=== PATIENT | female | born 1940 | race Asian ===

== ENCOUNTER 2016-08-30 12:06 | Emergency (ER) | payer OTHER, MEDICAID ==
[~2016-08-30] VITALS: Ht 147.3 cm; Wt 40.8 kg
[~2016-08-30 12:06] MED LIST: AMLODIPINE/BENA1 CAP PO; ASPIRIN81 M1 PO; ATROVENT 00.5 MG/3 M INH; AUGMENTIN 500 M1 TAB PO; CIPRO500 M1 PO; DEPAKOTE SPRIN125 MG PO; ENSURE PO; FER-IN-SOL75 MG/0.6 PO; LIPITOR20 MG PO; NAMENDA XR28 MG PO; NORVASC5 MG PO; OMEGA-3 FISH1200 MG PO; ORETIC25 MG PO; PROVENTIL2.5 MG/3 M INH; SYNTHROID0.025 MG PO; ZOCOR40 MG PO
[2016-08-30 12:17] VITALS: BP 132/88
--- NOTE | 2016-08-30 12:22 | NUR ---
PT BIB W/C TO BED 3 AT THIS TIME.
--- NOTE | 2016-08-30 12:24 | NUR ---
76F BIB SON FROM [facility] C/O NAUSEA/VOMITING/ DIARRHEA X LAST NIGHT; SON STATES UNKNOWN AMOUNT OF VOMITING/DIARRHEA; ABDOMEN SOFT, FLAT, NON-TENDER, ACTIVE BOWEL SOUNDS X 4 QUADRANTS; PT AWAKE, ALERT, BUT APHASIC; NO CRYING OR FACIAL GRIMMACE NOTED AT THIS TIME; HX: DEMENTIA/ALZHEIMERS; BL LUNG SOUNDS CLEAR, RR EVEN/UNLABORED AT THIS TIME; SKIN IS WARM/DRY; PT NOTED W/ BIRTHMARK TO LEFT EYE; SON STATES PT W/C BOUND AT FACILITY; PT PLACED ON MONITOR, RESTING IN BED W/ HOB ELEVATED AND IN LOWEST POSITION; POSITIONED FOR COMFORT; ER MD MADE AWARE OF STATUS. WILL CONTINUE TO MONITOR.
--- NOTE | 2016-08-30 12:38 | NUR ---
XRAY AT BEDSIDE.
--- NOTE | 2016-08-30 13:38 | NUR ---
PT APPEARS TO BE RESTING COMFORTABLY IN BED; VSS; WILL CONTINUE TO MONITOR.
--- NOTE | 2016-08-30 14:38 | NUR ---
PT READY FOR D/C PER ER MD WEINER ORDER; SON CALLED; STATED WILL COME PICK PT UP LATER HE IS BUSY AT THE MOMENT; WILL CONTINUE TO MONITOR; PT APPEARS TO BE SLEEPING COMFORTABLY IN BED; VSS; RR EVEN/UNLABORED.
[2016-08-30 15:37] VITALS: BP 113/77
--- NOTE | 2016-08-30 15:37 | NUR ---
Patient discharged with v/s stable. Written and verbal after care instructions given and explained. Patient alert, oriented and verbalized understanding of instructions. Ambulatory with steady gait. All questions addressed prior to discharge. ID band removed. Patient advised to follow up with PMD. Rx of IMODIUM A-D2 MG & ZOFRAN given. Patient educated on indication of medication including possible reaction and side effects. Opportunity to ask questions provided and answered.
== END 2016-08-30 15:37 | disposition home or self-care (01) ==
LOC: MED 12:06
DX: R19.7 Diarrhea, unspecified (principal); R11.2 Nausea with vomiting, unspecified; I10 Essential (primary) hypertension; Z79.82 Long term (current) use of aspirin
CPT/HCPCS: 36415; 71010; 80053; 81002; 85025; 85610; 85730; 87804; 99285; C1758

== ENCOUNTER 2016-09-12 14:46 | Inpatient (IN) | payer OTHER, MEDICAID ==
[~2016-09-12] VITALS: Ht 149.9 cm; Wt 40.4 kg
--- NOTE | 2016-09-12 14:46 | NUR ---
Patient was BIBA at this time.
--- NOTE | 2016-09-12 15:00 | NUR ---
Patient being taken to bed 07 via gurney per EMS.
[2016-09-12 15:10] VITALS: BP 148/85
--- NOTE | 2016-09-12 15:13 | NUR ---
76/F biba from [facility] for evaluation of diarrhea x4 in the past hour according to EMS. Patient has hx of Dementia and Alzhemier's. Pt is noted with imcomprehensible speech, garbled speech. Patient unable to make needs known but will sometimes follow commands. Patient is awake and alert. Pt also noted with a purple discoloration to left eye which is a valencia. Abdomen is soft, non tender. Patient noted with x1 episode of diarrhea, loose, brown stool. Pt incontinent, noted with a brief. No edema noted. Pt in a gown, all belongings placed in a bag and set on the back of the gurney. VSS.
--- NOTE | 2016-09-12 15:14 | NUR ---
Erica cintron in [facility] - 09/12/16 at [address] Feng evaluating patient at bedside.
[2016-09-12] MEDS ORDERED: NACL 0.9% 1,000 ML IV ONE (15:20)
[2016-09-12] MEDS ORDERED: SYNTHROID0.05 MG PO (15:24)
[2016-09-12] MEDS ORDERED: DEPAKOTE SPRIN125 MG PO (15:24)
[2016-09-12] MEDS ORDERED: NAMENDA10 MG PO (15:24)
[2016-09-12] MEDS ORDERED: ORETIC25 MG PO (15:24)
[2016-09-12] MEDS ORDERED: IMODIUM2 MG PO (15:24)
[2016-09-12] MEDS ORDERED: ZOFRAN8 MG PO (15:24)
[2016-09-12] MEDS ORDERED: VITAMIN D5000 I2 PO (15:24)
[2016-09-12] MEDS ORDERED: FISH OIL 1,2001 EAC2 PO (15:24)
[2016-09-12] MEDS ORDERED: ASPIR-LOW81 MG PO (15:24)
[2016-09-12] MEDS ORDERED: LIPITOR20 MG PO (15:24)
--- NOTE | 2016-09-12 15:39 | NUR ---
Dr. Feng evaluating pateint at bedside.
--- NOTE | 2016-09-12 15:50 | NUR ---
Patient taken to x-ray via gurney.
--- NOTE | 2016-09-12 15:59 | NUR ---
Patient back from XRAY via [facility].
--- NOTE | 2016-09-12 16:33 | NUR ---
Pt taken to CT via [facility].
--- NOTE | 2016-09-12 16:41 | NUR ---
Patient back from CT via [facility].
--- NOTE | 2016-09-12 16:47 | NUR ---
Pt placed onto right side lateral supported with pillows.
[2016-09-12] MEDS ORDERED: LEVOFLOXACIN 500 MG/D5W PREMIX 100 ML IV ONE (18:20)
[2016-09-12] MEDS: NACL 0.9% 1,000 ML IV SCH (18:27)
[2016-09-12] MEDS ORDERED: ONDANSETRON 4 MG/2 ML VIAL IVP PRN (18:30)
[2016-09-12] MEDS ORDERED: ENOXAPARIN 40 MG/0.4 ML SYR SUBQ ONE (18:30)
[2016-09-12] MEDS ORDERED: ACETAMINOPHEN 325 MG TAB PO PRN (18:30)
[2016-09-12] MEDS ORDERED: LORazepam 2 MG/ML VIAL IVP PRN (18:30)
--- NOTE | 2016-09-12 18:51 | NUR ---
Erica cintron in [facility] - 09/12/16 at 1851 by [facility] Patient being evaluated by physician at bedside.
--- NOTE | 2016-09-12 18:51 | NUR ---
Patient appears to be resting comfortably in bed. Vital Signs within normal limits. Respirations even and unlabored.
--- NOTE | 2016-09-12 19:24 | NUR ---
Pt report given to Landy VILLANUEVA. Transfer of care at this time.
--- NOTE | 2016-09-12 19:25 | NUR ---
RECEIVED REPORT FROM ROSA SANCHEZ FOR TRANSFER OF CARE.
--- NOTE | 2016-09-12 19:29 | NUR ---
PT TAKEN OFF THE UNIT VIA GURNEY TO HAVE X-RAY DONE.
--- NOTE | 2016-09-12 19:48 | NUR ---
PT BACK ON UNIT FROM HAVING X-RAY DONE.
--- NOTE | 2016-09-12 21:15 | NUR ---
Pt report given to RICH HANSEN. Transfer of care at this time.
--- NOTE | 2016-09-12 22:26 | NUR ---
Pt report given to MILAN VILLANUEVA. Transfer of care at this time.
[2016-09-12 22:30] VITALS: BP 116/74
--- NOTE | 2016-09-12 22:30 | NUR ---
ADMITTED A PT FROM ER, TRANSPORTED VIA GURNEY ACCOMPANIED BY ER NURSE. PT IS AAOX1, CONFUSED, ON ROOM AIR, HAS NO S/S OF RESPIRATORY DISTRESS/DISCOMFORT NOTED. LEFT EYE HEMATOMA NOTED, RIGHT KNEE ABRASION NOTED AND SACRAL WOUND. IV SITE IS PATENT AND INFUSING WELL. ID BAND UPDATED. MRSA SWABBING DONE. PLAN OF CARE DISCUSSED. ROOM ORIENTATION DONE, UNABLE TO COMPREHEND. SAFETY MEASURES INITIATED. WILL CONTINUE TO MONITOR.
[2016-09-13] VITALS: BP 116/78
--- NOTE | 2016-09-13 00:23 | NUR ---
RECEIVED A CALL FROM SABINO CHAVEZ. REPORTED A CRITICAL VALUE TROPONIN= 0.085, WILL CALL DR JASSO.
--- NOTE | 2016-09-13 00:24 | NUR ---
PAGED DR JASSO WAITING FOR CALL BACK.
--- NOTE | 2016-09-13 00:26 | NUR ---
CALLBACK RECEIVED FROM DR. JASSO. I REPORTED A CRITICAL VALUE AND NO NEW ORDERS MADE.
[2016-09-13] MEDS ORDERED: cefTRIAXone 1,000 MG VIAL ONE (01:33)
--- NOTE | 2016-09-13 02:00 | NUR ---
PT SLEEPING. NO SIGNS OF DISTRESS. CALL LIGHT WITHIN REACH.
[2016-09-13] MEDS ORDERED: COMPOSITE DRESSING TP PRN ×2 (03:00→15:00)
[2016-09-13 04:00] VITALS: BP 135/85
--- NOTE | 2016-09-13 04:00 | NUR ---
V/S CHECKED AND STABLE. HAS NO PAIN AND NOT IN DISTRESS. CALL LIGHT WITHIN REACH.
[2016-09-13] MEDS: NACL 0.9% 1,000 ML IV SCH ×3 (04:08→22:54)
--- NOTE | 2016-09-13 05:00 | NUR ---
AM CARE DONE TO THE PT. SPONGE BATH GIVEN. LINEN CHANGED. CALL LIGHT WITHIN REACH.
--- NOTE | 2016-09-13 05:35 | NUR ---
SPOKE WITH DR JASSO VIA PHONE. REPORTED THAT THE PT CAN'T TOLERATE PO PILL FOR XR SMALL BOWEL FOLLOW THROUGH PER INTERSTATE PLANNER DEX. MADE AN ORDER FOR NGT INSERTION.
--- NOTE | 2016-09-13 05:59 | NUR ---
INSERTED A NGT #[id number]. PLACEMENT WAS CHECKED BY 2 RN, DESI
[2016-09-13 08:00] VITALS: BP 150/109
[2016-09-13] MEDS: ENOXAPARIN 30 MG/0.3 ML SYR SUBQ SCH (08:19)
--- NOTE | 2016-09-13 08:41 | NUR ---
PATIENT HAS BEEN SCREENED AND CATEGORIZED HIGH NUTRITION RISK. PATIENT WILL BE SEEN WITHIN 1-2 DAYS OF ADMISSION. 09/13/16-09/14/[address]
--- NOTE | 2016-09-13 08:54 | NUR ---
RECEIVED A CRITICAL LAB VALUE FROM STEFAN, LAB TROPONIN= 0.083. WILL PAGED ATTENDING
--- NOTE | 2016-09-13 09:00 | NUR ---
PAGED ATTENDING WAITING FOR CALL BACK.
--- NOTE | 2016-09-13 10:13 | NUR ---
[place] [facility] [phone] PHONE THOMAS [phone]
--- NOTE | 2016-09-13 11:00 | NUR ---
ENDORSED REPORT TO DAY SHIFT NURSE. PT IN STABLE CONDITION.
--- NOTE | 2016-09-13 11:01 | NUR ---
ASSUMED CARE FROM MEENAKSHI ARIAS. PT AWAKE, ALERT. NON VERBAL. NG TUBE IN PLACE, CLAMPED. NPO FOR PROCEDURE. SMALL BOWEL FOLLOW THROUGH ON GOING AT THE BEDSIDE. WILL CONTINUE TO MONITOR PT.
[2016-09-13] MEDS ORDERED: LABETALOL 100 MG/20 ML VIAL IVP PRN (11:40)
[2016-09-13 12:00] VITALS: BP 146/88
[2016-09-13] MEDS ORDERED: POTASSIUM CHLORIDE 40 MEQ, LIDOCAINE 1% 25 MG in NACL 0.9% 250 ML IV SCH (13:00)
--- NOTE | 2016-09-13 13:00 | NUR ---
PT HAD LARGE BMX1, SOFT TO LIQUID BROWN STOOL NOTED. CLEANED PT. REPOSITIONED EVERY 2 HRS.
[2016-09-13] MEDS ORDERED: Z-GUARD PASTE TP PRN (15:00)
--- NOTE | 2016-09-13 15:03 | NUR ---
09/28/15 RD INITIAL ASSESSMENT COMPLETED PLEASE REFER TO NUTRITION ASSESSMENT UNDER CARE ACTIVITY FOR ESTIMATED NUTRITIONAL NEEDS. RD RECOMMENDATIONS: 1. CONSIDER SWALLOW EVALUATION 2. IF PT ABLE TO BEGIN PO DIET CONSIDER ADVANCE DIET TOLERATED TO 2GM NA WITH TEXTURE RECOMMENDATIONS PER SPEECH THERAPIST SWALLOW EVALUATION. 3. RD WILL F/U 2-3 DAYS; HIGH RISK. IZZY SOTO RD
[2016-09-13 17:00] VITALS: BP 148/67
--- NOTE | 2016-09-13 17:39 | NUR ---
PT HAD ANOTHER LARGE BMX1, LIQUID BROWN STOOLS NOTED.
--- NOTE | 2016-09-13 18:48 | NUR ---
PT RESTING. NO SOB NOTED. NO SIGNS OF PAIN. CLEAR LIQUIDS NOT GIVEN PENDING SWALLOW EVALUATION BY SPEECH THERAPIST. WILL ENDORSE TO NEXT SHIFT NURSE FOR CONTINUITY OF CARE.
[2016-09-13 20:00] VITALS: BP 139/73
--- NOTE | 2016-09-13 20:00 | NUR ---
SEEN PT AWAKE MOVING A LOT. PT MUMBLES ONLY. INITIAL ASSESSMENT DONE. VITAL SIGNS CHECKED. PT REPOSITIONED FOR COMFORT. SAFETY REINFORCED.
[2016-09-13] MEDS ORDERED: SODIUM PHOSPHATE 118 ML ENEM RC SCH (21:00)
[2016-09-13] MEDS: DIVALPROEX SPRINKLES 125 MG CAPDR PO SCH (22:36)
[2016-09-13] MEDS: ATORVASTATIN 20 MG TAB PO SCH (22:37)
[2016-09-13] MEDS: MEMANTINE 10 MG TAB PO SCH (22:37)
--- NOTE | 2016-09-13 23:20 | NUR ---
SEEN PT AWAKE BUT MOVES A LOT. VITAL SIGNS CHECKED. NO DISCOMFORT NOTED. PT REPOSITIONED FOR COMFORT.
[2016-09-14] VITALS: BP 158/77
[2016-09-14] MEDS: Z-GUARD PASTE TP SCH ×2 (01:00→13:00)
[2016-09-14] MEDS: NACL 0.9% IRR 250 ML BOTTLE IR SCH ×2 (01:00→13:00)
--- NOTE | 2016-09-14 01:30 | NUR ---
PT HAD LARGE AMOUNT OF BROWN ,THICK LIQUID TO PASTY STOOL. PERICARE RENDERED. WOUND DRESSING CHANGED. Z-GUARD APPLIED. PT KEPT COMFORTABLE.
[2016-09-14 04:00] VITALS: BP 152/69
--- NOTE | 2016-09-14 04:20 | NUR ---
SEEN PT ASLEEP. VITAL SIGNS CHECKED. ENGINEER BYPRODUCT HERE TO DO AM CARE.
[2016-09-14] MEDS: LEVOTHYROXINE 0.05 MG TAB PO SCH (06:45)
--- NOTE | 2016-09-14 07:15 | NUR ---
RECEIVED REPORT FROM NIGHT NURSE. PT IS AOX1. PT IS ON ROOM AIR. PT'S IV IS ON THE RIGHT FORE ARM PATENT AND INTACT. PT HAS NGT IN PLACE. PT IS NONVERBAL AND SHOWS NO S/S OF DISTRESS. PT HAS CALL LIGHT WITHIN REACH, BED IS LOWERED, AND FLAT. WILL CONTINUE TO MONITOR.
[2016-09-14 08:13] VITALS: BP 133/68
[2016-09-14] MEDS: ECOTRIN 81 MG TABEC PO SCH (09:00)
[2016-09-14] MEDS: POTASSIUM CHLORIDE 10 MEQ TABER PO SCH ×2 (09:15→12:00)
[2016-09-14] MEDS: MEMANTINE 10 MG TAB PO SCH ×2 (09:48→20:09)
[2016-09-14] MEDS: HYDROCHLOROTHIAZIDE 25 MG TAB PO SCH (09:49)
[2016-09-14] MEDS: DIVALPROEX SPRINKLES 125 MG CAPDR PO SCH ×2 (09:50→20:09)
--- NOTE | 2016-09-14 09:50 | NUR ---
ADMINISTERED DUE MEDICATIONS THROUGH NGT. NGT PLACEMENT VERIFIED BY AUSCULTATION. NO RESIDUAL NOTED. PT TOLERATED WELL. WAITING FOR SWALLOW EVALUATION TO BE DONE. WILL CONTINUE TO MONITOR.
[2016-09-14] MEDS: ENOXAPARIN 30 MG/0.3 ML SYR SUBQ SCH (09:51)
[2016-09-14] MEDS: NACL 0.9% 1,000 ML IV SCH ×2 (10:41→20:10)
--- NOTE | 2016-09-14 10:43 | NUR ---
FNS CONSULT RECEIVED ON 09/13/16. NOTE RD ALREADY FOLLOWING PATIENT HIGH NUTRITION RISK. PLEASE REFER TO NUTRITIONAL INITIAL ASSESSMENT DATED 09/13/16 FOR RECOMMENDATIONS AND ESTIMATED NUTRITIONAL NEEDS. RD TO REASSESS PATIENT IN 2-3 DAYS FROM INITIAL ASSESSMENT DATE: 09/13/16-09/16/[address]
--- NOTE | 2016-09-14 11:55 | NUR ---
CM NOTE CONCURRENT REVIEW FAXED TO [facility] / FAX #[phone], ATTN: THOMAS #[phone]
[2016-09-14 12:00] VITALS: BP 152/69
[2016-09-14] MEDS: COMPOSITE DRESSING TP SCH (13:00)
[2016-09-14] MEDS: POTASSIUM CHLORIDE 20% 40 MEQ/15 ML UDC GT SCH ×2 (15:54→20:09)
[2016-09-14 16:00] VITALS: BP 125/72
--- NOTE | 2016-09-14 16:10 | NUR ---
PT SEEN BY DR BOOGIE, DRESSING ON THE SACRAL WOUND CHANGED PER ORDERS. PT HAD A MODERATE DARK BROWN AND LOOSE BM. PT GIVEN PERINEAL CARE. PT REPOSITIONED AND TURNED. PT TOLERATED WELL.
--- NOTE | 2016-09-14 16:30 | NUR ---
PT SEEN BY SPEECH THERAPIST. PER DR BOOGIE PT CAN RESUME ORDERED DIET WITH NGT INSERTED.
--- NOTE | 2016-09-14 16:55 | NUR ---
* ST NOTE * Pt seen at bedside. Bedside Dysphagia and Oral Mechanism exams completed. See evaluation report for further details. Pt tolerating 3/3 alternating PO trials of regular solid saltine crackers w/out s/s of aspiration. Pt exhibiting residue on lingua after PO intake of regular solids. Pt however exhibiting finger sweep of oral cavity independently at baseline throughout session. Pt also tolerating 4/4 alternating PO trials of thin liquid apple juice via a cup w/out s/s of aspiration. After evaluation, pt and caregivers/nursing education completed regarding safe swallow compensatory strategies pt and caregivers/nursing may utilize to aid pt with swallow function as well as to clear oral cavity of residue/pocketed food during and after PO intake, with pt and caregivers/Nursing agreeable with and verbalizing understanding of clinician's recommendations. Thus it is recommended pt's PO diet consistency be modified to Mechanical soft-ground textures with thin liquids for all meals, requiring close supervision by caregivers during PO intake to assure aspiration precautions are in place, as well as to aid pt with feeding. No further ST follow up recommended at this time. Pt, caregivers/Nursing and physician education completed regarding results of evaluation; benefits of abiding by aspiration precautions and recommended PO diet consistency; and prognosis for improvement; with pt, caregivers/Nursing and physician agreeable with and verbalizing understanding of clinician's recommendations. Recommend: - PO diet consistency of Mechanical soft-ground textures with thin liquids for all meals - Continue enteral feeding/alternative means of nutrition until pt maintains adequate nutrition & hydration via PO intake - CLOSE supervision by caregivers/family/staff during PO intake to assure aspiration precautions are in place - Pt requires total assistance with feeding No further ST follow up recommended at this time. G8996 G8997 CI G8998 CI NOMS Level 2 Time In/Out 16:15 - 17:00
--- NOTE | 2016-09-14 19:15 | NUR ---
GAVE REPORT TO NIGHT NURSE. PT ENDORSED IN STABLE CONDITION.
--- NOTE | 2016-09-14 19:30 | NUR ---
RECEIVED REPORT FROM DAY RN AT BEDSIDE, PATIENT IS AWAKE IN BED, NON VERBAL, ON ROOM AIR, NO SOB OR SIGN OF DISTRESS AT THIS TIME, NOTED NG TUBE TO RIGHT NARE, POSITIVE PLACEMENT WITH AUSCULTATION. NOTED BRUISE TO LEFT EYE. SACRAL WOUND PRESENT. IV TO RIGHT FA PATENT AND INTACT WITH IVF INFUSING WELL. SAFETY MEASURES CHECKED, BED ALARM ON, DISCUSSED PLAN OF CARE WITH PATIENT, PATIENT UNABLE TO COMPREHEND, CALL LIGHT WITHIN REACH. WILL CONTINUE TO MONITOR.
[2016-09-14 20:00] VITALS: BP 140/86
[2016-09-14] MEDS: ATORVASTATIN 20 MG TAB PO SCH (20:09)
--- NOTE | 2016-09-14 20:21 | NUR ---
PM MEDS ADMINISTERED THROUGH NG TUBE, POSITIVE PLACEMENT WITH AUSCULTATION, PATIENT TOLERATED, SITTING IN BED RESTING AWAKE, NO SOB OR SIGN OF DISTRESS, CALL LIGHT WITHIN REACH, BED ALARM ON, WILL CONTINUE TO MONITOR.
--- NOTE | 2016-09-14 22:42 | NUR ---
PATIENT SITTING IN BED AWAKE, NO SOB OR SIGN OF DISTRESS AT THIS TIME CALL LIGHT WITHIN REACH. WILL CONTINUE TO MONITOR.
[2016-09-15] VITALS: BP 149/92
--- NOTE | 2016-09-15 | NUR ---
VITAL SIGNS STABLE, NO SOB OR SIGN OF DISTRESS AT THIS TIME, CALL LIGHT WITHIN REACH. WILL CONTINUE TO MONITOR.
[2016-09-15] MEDS: Z-GUARD PASTE TP SCH ×2 (01:48→13:47)
[2016-09-15] MEDS: NACL 0.9% IRR 250 ML BOTTLE IR SCH ×2 (01:48→13:47)
--- NOTE | 2016-09-15 02:30 | NUR ---
PATIENT AWAKE SITTING IN BED, NO SOB OR SIGN OF DISTRESS AT THIS TIME, CALL LIGHT WITHIN REACH. WILL CONTINUE TO MONITOR.
[2016-09-15 04:00] VITALS: BP 149/75
--- NOTE | 2016-09-15 04:30 | NUR ---
VITAL SIGNS STABLE, NO SOB OR SIGN OF DISTRESS, PATIENT SLEEPING, CALL LIGHT WITHIN REACH. WILL CONTINUE TO MONITOR.
[2016-09-15] MEDS: NACL 0.9% 1,000 ML IV SCH ×3 (06:48→20:15)
[2016-09-15] MEDS: LEVOTHYROXINE 0.05 MG TAB PO SCH (06:48)
--- NOTE | 2016-09-15 07:32 | NUR ---
ENDORSED PATIENT TO DAY RN AT BEDSIDE, PATIENT IN STABLE CONDITION SLEEPING COMFORTABLE
--- NOTE | 2016-09-15 07:35 | NUR ---
RECEIVED REPORT FROM NIGHT RN. PT RESTING IN BED. AAOX1. NO S/S OF ACUTE DISTRESS. FLACC-0. NG-TUBE NOTED TO RIGHT NARE, PATENT. CALL LIGHT WITHIN REACH. SAFETY MEASURES ENSURED. WILL CONTINUE TO MONITOR.
[2016-09-15 08:00] VITALS: BP 151/62
[2016-09-15] MEDS: MEMANTINE 10 MG TAB PO SCH ×2 (09:46→20:14)
[2016-09-15] MEDS: ECOTRIN 81 MG TABEC PO SCH (09:46)
[2016-09-15] MEDS: DIVALPROEX SPRINKLES 125 MG CAPDR PO SCH ×2 (09:46→20:14)
[2016-09-15] MEDS: HYDROCHLOROTHIAZIDE 25 MG TAB PO SCH (09:47)
[2016-09-15] MEDS: ENOXAPARIN 30 MG/0.3 ML SYR SUBQ SCH (09:54)
[2016-09-15] MEDS ORDERED: POTASSIUM CHLORIDE 10 MEQ TABER PO SCH (10:00)
[2016-09-15] MEDS ORDERED: MAG SULF 2000 MG/WATER PREMIX 50 ML IV SCH (10:00)
[2016-09-15] MEDS ORDERED: POTASSIUM CHLORIDE 20% 40 MEQ/15 ML UDC GT SCH (10:20)
--- NOTE | 2016-09-15 10:36 | NUR ---
PT TOLERATED AM MEDS WELL. FLACC-0. NO S/S OF ACUTE DISTRESS. CALL LIGHT WITHIN REACH. SAFETY MEASURES ENSURED. WILL CONTINUE TO MONITOR.
--- NOTE | 2016-09-15 11:02 | NUR ---
FAXED CONCURRENT REVIEW TO [facility] [phone] PHONE THOMAS [phone]
[2016-09-15 12:00] VITALS: BP 121/76
--- NOTE | 2016-09-15 12:33 | NUR ---
SS NOTE: I SPOKE WITH PT'S SON, VINAY REGARDING POSSIBLE SHORT TERM SNF PLACEMENT FOR PT. HE STATED THAT HE IS IN AGREEMENT WITH PT GOING TO ANY INSURANCE CONTRACTED FACILITY THAT IS WILLING TO ACCEPT PT.
--- NOTE | 2016-09-15 13:13 | NUR ---
SS NOTE: SS NOTE: PER GLORIA FROM [facility] ([phone]), THEY ARE ABLE TO ACCEPT PT UPON DISCHARGE. PER HEENA FROM [facility], THEY ARE UNABLE TO ACCEPT [place] [facility] [place]
--- NOTE | 2016-09-15 13:45 | NUR ---
PT RESTING IN BED. NO S/S OF ACUTE DISTRESS. NG-TUBE NOTED TO RIGHT NARE. PT TOLERATED DRESSING CHANGE WELL. CALL LIGHT WITHIN REACH. SAFETY MEASURES ENSURED. WILL CONTINUE TO MONITOR.
[2016-09-15] MEDS: COMPOSITE DRESSING TP SCH (13:47)
[2016-09-15] MEDS: ISOSORBIDE DINITRATE 10 MG TAB PO SCH ×2 (13:47→17:46)
[2016-09-15 16:00] VITALS: BP 118/85
--- NOTE | 2016-09-15 16:03 | NUR ---
PT RESTING IN BED. NO S/S OF ACUTE DISTRESS. FLACC-0. IV SITE PATENT AND INTACT. CALL LIGHT WITHIN REACH. SAFETY MEASURES ENSURED. WILL CONTINUE TO MONITOR.
--- NOTE | 2016-09-15 16:11 | NUR ---
SS NOTE: I SPOKE WITH PT'S SON, VINAY AND HE STATED THAT HE WOULD LIKE [facility]. I SPOKE WITH RN LEATHA FROM [facility] AND SHE STATED THAT SHE WILL COME TO EVALUATE PT TOMORROW.
--- NOTE | 2016-09-15 19:10 | NUR ---
ENDORSED PLAN OF CARE TO NIGHT RN. PT REMAINS IN STABLE CONDITION.
--- NOTE | 2016-09-15 19:11 | NUR ---
RECEIVED REPORT FROM DAY SHIFT NURSE RN. PT IS AWAKE AND ALERT, NOT IN DISTRESS. NO S/S OF RESPIRATORY DISTRESS/DISCOMFORT NOTED. IV SITE IS PATENT AND INTACT. PLAN OD CARE DISCUSSED, UNABLE TO COMPREHEND. SAFETY MEASURES CHECKED, CALL LIGHT WITHIN REACH. WILL CONTINUE TO MONITOR.
[2016-09-15 20:00] VITALS: BP 106/61
[2016-09-15] MEDS: ATORVASTATIN 20 MG TAB PO SCH (20:14)
--- NOTE | 2016-09-15 20:21 | NUR ---
DUE MEDS GIVEN. PT TOLERATED MEDS WELL.
--- NOTE | 2016-09-15 22:00 | NUR ---
PT RESTING IN BED, HAS NO SIGNS OF DISTRESS. NO SOB NOTED.
[2016-09-16] VITALS (7 sets, daily range): BP systolic 99–143; BP diastolic 51–77
--- NOTE | 2016-09-16 00:08 | NUR ---
V/S CHECKED AND STABLE. NOT IN DISTRESS. SAFETY MEASURES CHECKED, CALL LIGHT WITHIN REACH.
--- NOTE | 2016-09-16 02:00 | NUR ---
PT SLEEPING, HAS NO SIGNS OF RESPIRATORY DISTRESS/DISCOMFORT. CALL LIGHT WITHIN REACH.
[2016-09-16] MEDS: NACL 0.9% IRR 250 ML BOTTLE IR SCH ×2 (02:15→13:09)
[2016-09-16] MEDS: Z-GUARD PASTE TP SCH ×2 (02:15→13:09)
--- NOTE | 2016-09-16 04:03 | NUR ---
PT SLEEPING, EASILY AROUSABLE BY NAME. V/S CHECKED AND STABLE. CALL LIGHT WITHIN REACH. WILL CONTINUE TO MONITOR.
[2016-09-16] MEDS: LEVOTHYROXINE 0.05 MG TAB PO SCH (05:40)
[2016-09-16] MEDS: NACL 0.9% 1,000 ML IV SCH ×2 (05:52→15:49)
--- NOTE | 2016-09-16 06:09 | NUR ---
AM CARE DONE. HAS NO COMPLAIN OF PAIN. DUE MED. GIVEN, PT TOLERATED WELL. CALL LIGHT WITHIN REACH.
--- NOTE | 2016-09-16 07:15 | NUR ---
ENDORSED REPORT TO DAY SHIFT NURSE FOR CONTINUITY OF CARE. PT IS IN STABLE CONDITION.
--- NOTE | 2016-09-16 07:17 | NUR ---
RECEIVED REPORT FROM JOHN RN. PT RESTING IN BED. AAOX1. NO S/S OF ACUTE DISTRESS. FLACC-0. IV SITE PATENT AND INTACT. NG-TUBE NOTED TO THE RIGHT NARE. DRESSING TO SACRAL AREA DRY AND INTACT. BRUISE TO LEFT EYE NOTED. PT RESTING IN BED. CALL LIGHT WITHIN REACH. SAFETY MEASURES ENSURED WILL CONTINUE TO MONITOR.
[2016-09-16] MEDS: MEMANTINE 10 MG TAB PO SCH ×2 (09:00→21:00)
[2016-09-16] MEDS: DIVALPROEX SPRINKLES 125 MG CAPDR PO SCH ×2 (09:00→21:00)
[2016-09-16] MEDS: HYDROCHLOROTHIAZIDE 25 MG TAB PO SCH (09:00)
[2016-09-16] MEDS: ECOTRIN 81 MG TABEC PO SCH (09:01)
[2016-09-16] MEDS: ISOSORBIDE DINITRATE 10 MG TAB PO SCH ×3 (09:01→17:16)
[2016-09-16] MEDS: ENOXAPARIN 30 MG/0.3 ML SYR SUBQ SCH (09:07)
--- NOTE | 2016-09-16 10:04 | NUR ---
PT TOLERATED AM MEDS WELL. PT TOLERATED APPLE SAUCE. NO S/S OF ACUTE DISTRESS. FLACC-0. CALL LIGHT WITHIN REACH. SAFETY MEASURES ENSURED. WILL CONTINUE TO MONITOR.
--- NOTE | 2016-09-16 10:30 | NUR ---
SPOKE TO IESHA FROM [facility]. HE STATED HE DIDN'T HAVE PT IN HIS RECORDS. FAXED OVER FACESHEET AND H&P. AWAITING CALL BACK.
[2016-09-16] MEDS ORDERED: NOVAPLUS ONDA2 MG/M1 IVP (11:15)
[2016-09-16] MEDS ORDERED: ACETAMINOPHEN325 M2 PO (11:15)
[2016-09-16] MEDS ORDERED: CEFTRIAXON1 GM/50 ML IV (11:15)
[2016-09-16] MEDS: COMPOSITE DRESSING TP SCH (13:09)
--- NOTE | 2016-09-16 14:10 | NUR ---
LEFT A MESSAGE FOR VINAY REGARDING POSSIBLE PLACEMENT AT SNF FOR IV ANTIBIOTICS. AWAITING CALL BACK.
--- NOTE | 2016-09-16 15:20 | NUR ---
ENDORSED PLAN OF CARE TO RICH CERON. PT REMAINS IN STABLE CONDITION.
--- NOTE | 2016-09-16 15:21 | NUR ---
RECEIVED REPORT FROM RADHA. PT IS RESTING COMFORTABLY IN BED. NOTED THE L BLACK EYE. NOTED THE R IV ON FA, COVERED WITH GAUZE. PT IS AWAKE AND OBEY SIMPLE COMMANDS. DENIES PAIN. NOTED NO DISTRESS. WILL CONTINUE TO MONITOR PT.
--- NOTE | 2016-09-16 15:35 | NUR ---
09/16/16 RD FOLLOW UP COMPLETED REFER TO NUTRITION PROGRESS NOTE UNDER CARE ACTIVITY FOR ESTIMATED NEEDS. RD RECOMMENDATIONS: 1. MODIFY DIET TO MECHANICAL SOFT, GROUND TEXTURE TOLERATED. 2. RD ADDED HEALTH SHAKE TID TO MEALS. 2. ENCOURAGE PO INTAKES PRN. 3. OBTAIN FOOD PREFERENCES IF/WHEN ABLE. 4. IF PLAN OF CARE CHANGES AND TF IS INDICATED/FALLS WITHIN GOALS OF CARE PLEASE CONSULT RD. 5. RD WILL F/U IN 2-3 DAYS; HIGH RISK. TULIO LE[address]IS RD
--- NOTE | 2016-09-16 17:20 | NUR ---
PT RESTING IN BED. NO SIGNS OF DISTRESS. WILL CONTINUE TO MONITOR PT.
--- NOTE | 2016-09-16 19:05 | NUR ---
ENDORSED PT TO THE SPECIAL EFFECTS ARTIST NURSE AT BEDSIDE FOR CONTINUITY OF CARE. PT IS STABLE AND RESTING COMFORTABLY AT BEDSIDE.
--- NOTE | 2016-09-16 19:30 | NUR ---
RECEIVED PT IN STABLE CONDITION FROM AM NURSE. AWAKE, ALERT BUT NON VERBAL. ON TELE MONITOR. WITH NO ACUTE DISTRESS NOTED. HAS NGT THAT IS CLAMPED ON THE RT NASAL. PROGRAM DIRECTOR SUBSTANCE ABUSE FEEDING AT THIS TIME. TOLERATING WELL. ON BEDREST. WITH IVF INFUSING WELL ON THE LT FA#20. CLEAR AND PATENT. ON CONTACT ISOLATION. FREQUENT ROUNDS NEEDED. CALL LIGHT PLACED WITHIN EASY REACH. BED ON LOW POSITION. WILL CONTINUE TO MONITOR.
[2016-09-16] MEDS: ATORVASTATIN 20 MG TAB PO SCH (21:00)
--- NOTE | 2016-09-16 21:15 | NUR ---
ABLE TO TOLERATE PO MEDS . NO DISCOMFORT NOTED.
[2016-09-17] VITALS (7 sets, daily range): BP systolic 105–134; BP diastolic 61–85
--- NOTE | 2016-09-17 00:10 | NUR ---
AWAKE, WITH NO DISTRESS NOTED. VITAL SIGNS TAKEN ,STABLE. REPOSITIONED FOR COMFORT.
[2016-09-17] MEDS: NACL 0.9% IRR 250 ML BOTTLE IR SCH ×2 (00:24→13:16)
[2016-09-17] MEDS: Z-GUARD PASTE TP SCH ×2 (00:24→13:16)
--- NOTE | 2016-09-17 03:15 | NUR ---
MADE ROUNDS. PT ASLEEP. NO S/S OF ANY DISCOMFORT NOTED.
[2016-09-17] MEDS: LEVOTHYROXINE 0.05 MG TAB PO SCH (05:50)
--- NOTE | 2016-09-17 06:40 | NUR ---
AWAKE, CONFUSED. VITAL SIGNS TAKEN BP 145/75 ,HR -61. NO DISTRESS NOTED. WILL CONTINUE TO MONITOR.
--- NOTE | 2016-09-17 07:25 | NUR ---
ENDORSED PT IN STABLE CONDITION TO AM NURSE.
--- NOTE | 2016-09-17 07:30 | NUR ---
RECEIVED BEDSIDE REPORT FROM NIGHT NURSE. PT APHASIC, AWAKE, FLACC 0, RESTING IN BED IN HIGH FOWLERS. REORIENTED PT TO ENVIRONMENT AND CALL LIGHT. HANDBAG FINISHER AT BEDSIDE ASSISTING WITH EATING AND ADLS. LEFT PERIORBITAL ECCHYMOSIS NOTED. NG TUBE TO RIGHT NARES CLAMPED. NO S/S OF CP, SOB OR ACUTE DISTRESS. IV SITE ASYMPTOMATIC, PATENT AND INTACT. IVF INFUSING WELL. REVIEWED AND DISCUSSED PLAN OF CARE WITH PT. WILL CONTINUE TO REINFORCE TEACHING. SAFETY MEASURES ENSURED. CALL LIGHT WITHIN REACH. WILL CONTINUE TO MONITOR.
[2016-09-17] MEDS: NACL 0.9% 1,000 ML IV SCH ×2 (08:27→17:02)
[2016-09-17] MEDS: ENOXAPARIN 30 MG/0.3 ML SYR SUBQ SCH (09:37)
[2016-09-17] MEDS: ISOSORBIDE DINITRATE 10 MG TAB PO SCH ×3 (09:39→17:51)
[2016-09-17] MEDS: HYDROCHLOROTHIAZIDE 25 MG TAB PO SCH (09:39)
[2016-09-17] MEDS: ECOTRIN 81 MG TABEC PO SCH (09:39)
[2016-09-17] MEDS: MEMANTINE 10 MG TAB PO SCH ×2 (09:39→20:34)
[2016-09-17] MEDS: DIVALPROEX SPRINKLES 125 MG CAPDR PO SCH ×2 (09:40→20:34)
--- NOTE | 2016-09-17 09:59 | NUR ---
MEDICATIONS ADMINISTERED WITH EDUCATION. PT APHASIC, WILL CONTINUE TO REINFORCE TEACHING. PT TOLERATED WELL. ASSISTED WITH ADLS WITH MAJOR GIFTS OFFICER. SACRAL DRESSING CHANGED NEEDED. SAFETY MEASURES ENSURED. CALL LIGHT WITHIN REACH
--- NOTE | 2016-09-17 12:30 | NUR ---
HELD ISOSORBIDE DUE TO LOW BP. ASSISTANT CORPORATION COUNSEL AT BEDSIDE, ASSISTING PT WITH ADLS AND EATING IN HIGH FOWLERS. FLACC 0, NO S/S OF ACUTE DISTRESS. SAFETY MEASURES ENSURED. WILL CONTINUE TO MONITOR.
[2016-09-17] MEDS: COMPOSITE DRESSING TP SCH (13:16)
[2016-09-17] MEDS: POTASSIUM CHLORIDE 20% 40 MEQ/15 ML UDC NG SCH ×2 (15:59→18:03)
--- NOTE | 2016-09-17 16:00 | NUR ---
PT RESTING IN BED. FLACC 0. ASSISTED WITH ADLS WITH COMMUNICATIONS ADMINISTRATOR. PT TOLERATED WELL. NO S/S OF ACUTE DISTRESS. SAFETY MEASURES ENSURE. WILL CONTINUE TO MONITOR.
[2016-09-17] MEDS ORDERED: cefTRIAXone 500 MG VIAL ONE (18:00)
--- NOTE | 2016-09-17 19:23 | NUR ---
ENDORSED PLAN OF CARE TO NIGHT NURSE. CONDITION STABLE.
--- NOTE | 2016-09-17 19:45 | NUR ---
RECEIVED PT IN STABLE CONDITION FROM AM NURSE. AWAKE, ALERT BUT CONFUSED. ON TELE MONITOR . NO S/S OF ANY DISCOMFORT NOR PAIN NOTED. WITH NGT CLAMPED. STILL EATING DINNER BEING FED BY BUSINESS SUPPORT ASSOCIATE AT THIS TIME. EAT SLOW BUT ABLE TO TOLERATE . BEDREST. WITH IVF INFUSING WELL ON THE RT FA @20. CLEAR AND PATENT. SIDE RAILS UP X2. BED ON LOW POSITION. NEED FREQUENT ROUNDS. WILL CONTINUE TO MONITOR.
[2016-09-17] MEDS: ATORVASTATIN 20 MG TAB PO SCH (20:34)
--- NOTE | 2016-09-17 22:00 | NUR ---
REPOSITIONED FOR COMFORT. NO DISTRESS NOTED.
--- NOTE | 2016-09-18 | NUR ---
VITAL SIGNS STABLE. NO S/S OF ANY PAIN NOTED/
[2016-09-18] MEDS: NACL 0.9% 1,000 ML IV SCH ×2 (00:17→04:27)
[2016-09-18] MEDS: NACL 0.9% IRR 250 ML BOTTLE IR SCH ×2 (01:01→13:48)
[2016-09-18] MEDS: Z-GUARD PASTE TP SCH ×2 (01:01→13:48)
--- NOTE | 2016-09-18 02:00 | NUR ---
ASLEEP. NO S/S FO ANY PAIN NOTED. WILL CONTINUE TO MONITOR.
[2016-09-18 04:10] VITALS: BP 124/71
[2016-09-18] MEDS: LEVOTHYROXINE 0.05 MG TAB PO SCH (05:44)
--- NOTE | 2016-09-18 07:30 | NUR ---
RECEIVED PT IN BED, AWAKE, ALERT ORIENTED X1. NO SOB NOTED. NO SIGNS AND SYMPTOMS OF ACUTE PAIN OR DISCOMFORT NOTED AT THIS TIME. NGT IN PLACE, CLAMPED. SACRAL WOUND NOTED. DRESSING DRY AND INTACT. PT BEDBOUND. SAFETY PRECAUTION IN PLACE. CALL LIGHT WITHIN REACH.
--- NOTE | 2016-09-18 07:30 | NUR ---
ENDORSED PT IN STABLE CONDITION TO AM NURSE FOR CONTINUITY OF CARE.
[2016-09-18 08:00] VITALS: BP 110/70
[2016-09-18] MEDS: MEMANTINE 10 MG TAB PO SCH (09:54)
[2016-09-18] MEDS: HYDROCHLOROTHIAZIDE 25 MG TAB PO SCH (09:55)
[2016-09-18] MEDS: ECOTRIN 81 MG TABEC PO SCH (09:56)
[2016-09-18] MEDS: ISOSORBIDE DINITRATE 10 MG TAB PO SCH ×2 (09:56→13:49)
[2016-09-18] MEDS: ENOXAPARIN 30 MG/0.3 ML SYR SUBQ SCH (09:57)
[2016-09-18] MEDS: DIVALPROEX SPRINKLES 125 MG CAPDR PO SCH (09:58)
--- NOTE | 2016-09-18 10:30 | NUR ---
WOUND CARE EVALUATION NOTES: REASON FOR EVALUATION: SACRAL WOUND COMPLETE SKIN ASSESSMENT DONE ON THIS 76 Y/O FEMALE PATIENT FROM [facility] TO [facility], WITH INITIAL DIAGNOSIS OF DIARRHEA, ELEVATED TROPONIN AND URINARY TRACT INFECTION. PAST MEDICAL HISTORY INCLUDE DEMENTIA, HYPERTENSION, HYPERTHYROIDISM,S/P CLOSED HEAD INJURY AND DJD. ALL ABOVE INFORMATION WAS OBTAINED FROM THE ADMISSION H&P. LABS ARE WBC 6.2, H/H 10.1/32.6, GLUCOSE 92, ALBUMIN 2.2, PT/INR 10.3/1.1 AND PTT 27.4. CURRENT MEDS INCLUDE ENOXAPARIN, ATIVAN, CEFTRIAXONE AND ASPIRIN. PATIENT IS AWAKE, NON VERBAL AND UNABLE TO FOLLOW SIMPLE COMMANDS. SKIN WARM TO TOUCH WNL, TOENAILS ARE SLIGHTLY THICKENED, NO EDEMA, FINE HAIR GROWTH AND +2 BILATERAL PEDAL PULSES. URINE AND BOWEL INCONTINENT. UNABLE TO MAKE HER NEEDS KNOWN. NEEDS MAX ASSISTANCE IN TURNING. INITIAL PLAN OF CARE AND PRESSURE PREVENTIVE MEASURES DISCUSSED, UNABLE TO VERBALIZE UNDERSTANDING. WILL REINFORCE TEACHING. INTEGUMENTARY: SACRUM - ST II - 100% PALE RED. PW RED. RECOMMENDATIONS: -CLEANSE SACRUM WITH MILD SOAP AND WATER, PAT DRY, APPLY Z GUARD BIDWC AND PRN WITH SOILING. LEAVE OPEN TO AIR -TURN AND REPOSITION PATIENT Q2H TO LEFT AND RIGHT SIDE ONLY TO OFFLOAD SACRALCOCCYX -ASSESS AND MONITOR SKIN CONDITION DURING POSITION CHANGE, PLEASE PAY PARTICULAR ATTENTION TO SACRALCOCCYX, ELBOWS AND HEELS -OFFLOAD BILATERAL HEELS BY PLACING PILLOWS UNDER CALVES AT ALL TIMES, UNLESS OTHERWISE CONTRAINDICATED -KEEP SKIN CLEAN AND DRY AT ALL TIMES. RECOMMENDATIONS DISCUSSED WITH PRIMARY RN. WILL FOLLOW UP PATIENT Q 7 DAYS AND PRN. PLEAE CONTACT C FOR ANY CONCERNS, QUESTIONS AND CHANGES IN SKIN CONDITION.
--- NOTE | 2016-09-18 11:08 | NUR ---
FAXED CONCURRENT REVIEW TO [facility] [phone] THOMAS [phone] SPOKE WITH THOMAS FROM [facility]. I WAS TOLD FROM NOEL SHERIFF'S OFFICER DIRECTOR, THAT THE SON WANTED SKILLED FOR IV ANTIBIOTICS, PRIOR TO THE PATIENT GOING ON HOSPICE, AFTER GOING BACK TO [facility]. SPOKE WITH THOMAS FROM [facility] AND INFORMED HER. SHE SAID TO [facility], [facility] AND [facility] [place]. SPOKE WITH RALF AT [facility] AND SHE SAID SHE WOULD SPEAK WITH THE SON.
--- NOTE | 2016-09-18 11:12 | NUR ---
CM NOTE: SNF PLACEMENT INQURIES SENT TO: [facility] - TEL # [phone], FAX # [phone] ([place]) [facility] - TEL # [phone], FAX # [phone] ([place]IRE[place]) [facility] - TEL # [phone], FAX # [phone] ([place]) [facility] - TEL # [phone], FAX # [phone] (HEENA)
[2016-09-18 12:00] VITALS: BP 122/60
[2016-09-18] MEDS: COMPOSITE DRESSING TP SCH (13:48)
--- NOTE | 2016-09-18 14:00 | NUR ---
PT'S NGT REMOVED AND INTACT PER MD ORDER. NO SOB NOTED. PT ALERT, AND AWAKE. NO SIGNS AND SYMPTOMS OF PAIN OR DISCOMFORT NOTED AT THIS TIME. NO ACUTE DISTRESS NOTED.
--- NOTE | 2016-09-18 14:30 | NUR ---
RECEIVED A CALL FROM KINZA FROM [facility]. THEY HAVE ACCEPTED THE PATIENT. SHE WILL GO TO [id number]. I CALLED THOMAS [place] [facility] [facility]. SPOKE WITH THE SON, VINAY AND GAVE HIM THE INFORMATION,
--- NOTE | 2016-09-18 15:10 | NUR ---
RECEIVED A CALL FROM THOMAS AT [facility]. THE AUTH FOR [facility] IS [id number]. AUTH FOR [facility] IS [id number]. RECEIVED CALL FROM CARRIE FROM [facility], HE ALREADY HAS THE AUTH FROM [facility]. CALLED [facility] AND SET UP [facility] FOR 5-6PM SPOKE WITH MANPREET AT [facility]. INFORMED GENARO VILLANUEVA. Addendum: 09/18/16 at 1523 by Samnatha Kwong CM ALSO INFORMED RALF FROM [facility] TO WHERE THIS PATIENT WILL BE GOING.
[2016-09-18 16:00] VITALS: BP 94/57
--- NOTE | 2016-09-18 16:35 | NUR ---
CALLED [facility], SPOKE TO CE TO GIVE REPORT REGARDING PT ADMISSION TO THEIR FACILITY. PT ALERT, AWAKE, NO SIGNS AND SYMPTOMS OF ACUTE PAIN AND DISCOMFORT. NO SOB NOTED. VITAL SIGNS STABLE. IVF HEPLOCK IN PLACE ON RIGHT FA G20 INTACT, PATENT. TELE BOX REMOVED. KEPT PT CLEAN , DRY AND COMFORTABLE. WOUND CARE DONE ON SACRAL AREA.
--- NOTE | 2016-09-18 16:50 | NUR ---
ADDITIONAL: PHOTO TAKEN ON PT'S SACRAL WOUND, ATTACHED TO CHART.
--- NOTE | 2016-09-18 16:50 | NUR ---
[facility] CAME TO NOTE TAKER PT. PT ON STABLE CONDITION. TRANSFERRED TO [facility] AND COMFORTABLY. NEEDS ATTENDED.
== END 2016-09-18 16:10 | DRG 689 ==
LOC: MED 14:46 → MTU 18:38
PROVIDERS: ADMIT Hospitalist; ATTEND Hospitalist
DX: N39.0 Urinary tract infection, site not specified (principal); I21.4 Non-ST elevation (NSTEMI) myocardial infarction; E44.0 Moderate protein-calorie malnutrition; K56.7 Ileus, unspecified; Z68.1 Body mass index [BMI] 19.9 or less, adult; K56.41 Fecal impaction; Z66 Do not resuscitate; E03.9 Hypothyroidism, unspecified; I10 Essential (primary) hypertension; G30.9 Alzheimer's disease, unspecified; G40.909 Epilepsy, unspecified, not intractable, without status epilepticus; E78.00 Pure hypercholesterolemia, unspecified; M19.90 Unspecified osteoarthritis, unspecified site; F02.80 Dementia in other diseases classified elsewhere, unspecified severity, without behavioral disturbance, psychotic disturbance, mood disturbance, and anxiety; Z79.82 Long term (current) use of aspirin; Z79.899 Other long term (current) drug therapy